=== PATIENT | male | born 1980 | race Hispanic/Latino ===

== ENCOUNTER 2023-10-05 01:22 | Emergency (ER) | payer SELFPAY ==
--- OUTSIDE RECORDS SUMMARY | 2023-10-05 01:30 | XMS REPORT | Continuity of Care Document ---
Author Name Unknown Address [address] [facility] [address] [place] [address] [facility] thconnect Address [address] [place] [address] Care Team Providers Care Dynamics Ax Solution Architect Name Role Phone Pcp, Patient Does Not Have A Primary Care Physic robert Janki Echols MD Attending Clinician [phone] JANKI ECHOLS Attending Clinician Unavailable Doctor Unassigned, Beltrami Attending Clinician U navailable Only, Adc Test Attending Clinician Unavailable Gramm BLUE LINE HANGER, Tova A Attending Clinician [phone] Janki Echols MD Admitting Clinician [phone] JANKI ECHOLS Admitting Clinician Unavailable Problems Condition Name Condition Details Condition Category Status Onset Date Resolution Date Last Treatment Date Treating Clinician Comments Source Hemorrhoid s, unspecifie d hemorrhoid type Hemorrhoid s, unspecifie d hemorrhoid type Disease Active 06-15 00:00: 00 Overview: Formattin g of this note might be different from the original. Added automatic ally from request for surgery [id number] [facility] Skin tag Skin tag Disease Active 06-15 00:00: 00 Overview: Formattin g of this note might be different from the original. Added automatic ally from request for surgery [id number] [facility] Allergies, Adverse Reactions, Alerts Allergy Name Allergy Type Status Severity Reaction(s) Onset Date Inactive Date Treating Clinician Comments Source NO KNOWN ALLERGIE S Drug Class Active [facility] Social History Social Habit Start Date Stop Date Quantity Comments Source Exposure to SARS-CoV-2 (event) 2022-07-08 00:00:00 2022-07-18 09:59:00 Not sure [facility] Alcohol intake 2022-07-18 00:00:00 2022-07-18 00:00:00 Ex-drinker (finding) [facility] Tobacco use and exposure 2021-06-10 00:00:00 2021-06-10 00:00:00 Smokeless tobacco non-user [facility] Sex Assigned At 1981 00:00:00 1981 00:00:00 [facility] Smoking Status Start Date Stop Date Source Never smoked tobacco [facility] Medications Ordered Medication Name Filled Medication Name Start Date Stop Date Current Medication? Ordering Clinician Indication Dosage Frequency Signature (SIG) Comments Components Source ascorbic acid, vitamin C, 500 mg tablet 07-01 14:10: 33 Yes 500mg Take 500 mg by mouth daily. [facility] ascorbic acid, vitamin C, 500 mg tablet 07-01 14:10: 33 Yes 500mg Take 500 mg by mouth daily. [facility] ascorbic acid, vitamin C, 500 mg tablet 07-01 14:10: 33 Yes 500mg Take 500 mg by mouth daily. [facility] docusate (COLACE) 100 mg capsule 07-01 00:00: 00 Yes [id number] 100mg Take 1 capsule by mouth 2 (two) times daily. [facility] docusate (COLACE) 100 mg capsule 07-01 00:00: 00 Yes [id number] 100mg Take 1 capsule by mouth 2 (two) times daily. [facility] docusate (COLACE) 100 mg capsule 07-01 00:00: 00 Yes [id number] 100mg Take 1 capsule by mouth 2 (two) times daily. [facility] psyllium husk 3.4 gram oral powder packet 07-01 00:00: 00 08-01 04:59 :00 No [id number] 1{packe t} Take 1 Packet by mouth daily for 30 days. [facility] psyllium husk 3.4 gram oral powder packet 07-01 00:00: 00 08-01 04:59 :00 No [id number] 1{packe t} Take 1 Packet by mouth daily for 30 days. [facility] psyllium husk 3.4 gram oral powder packet 07-01 00:00: 00 08-01 04:59 :00 No [id number] 1{packe t} Take 1 Packet by mouth daily for 30 days. [facility] Vital Signs Vital Name Observation Time Observation Value Comments [facility] [place] Systolic blood pressure 2022-07-18 15:43:00 95 mm[Hg] [facility] Diastolic blood pressure 2022-07-18 15:43:00 62 mm[Hg] [facility] Heart rate 2022-07-18 15:43:00 59 /min [facility] Body temperature 2022-07-18 15:43:00 36.44 Odalis [facility] Respiratory rate 2022-07-18 15:43:00 18 /min [facility] Body height 2022-07-18 15:43:00 167.6 cm [facility] Body weight 2022-07-18 15:43:00 71.124 kg [facility] BMI 2022-07-18 15:43:00 25.31 kg/m2 [facility] Oxygen saturation in Arterial blood by Pulse oximetry 2022-07-18 15:43:00 99 /min [facility] Encounters Start Date/Time End Date/Time Encounter Type Admission Type Attending Clinicians Care Facility Care Department Encounter ID Source 2022-07-18 10:00:00 2022-07-18 11:53:48 Office Visit [facility] 1.2.840.114 350.1.13.10 4.2.7.2.686 [id number] [facility] 2022-07-18 10:00:00 2022-07-18 11:53:48 Outpatient R JANKI ECHOLS [facility] [id number] [facility] 2022-07-18 10:00:00 2022-07-18 10:00:00 Outpatient R JANKI ECHOLS [facility] [id number] [facility] 2022-07-18 00:00:00 2022-07-18 00:00:00 Orders Only Doctor Unassigned, Beltrami [facility] 1.2.840.114 350.1.13.10 4.2.7.2.686 [id number] [facility] 2022-07-01 07:59:00 2022-07-01 13:50:00 [facility] 1.2.840.114 350.1.13.10 4.2.7.2.686 [id number] [facility] 2022-07-01 07:59:00 2022-07-01 13:50:00 Outpatient R JANKI ECHOLS [facility] [id number] [facility] 2022-07-01 10:00:00 2022-07-01 12:47:00 Surgery Janki Echols [facility] 1.2.840.114 350.1.13.10 4.2.7.2.686 [id number] [facility] 2022-06-28 15:30:00 2022-06-28 15:45:00 Laboratory Only Only, Adc Test Janki Echols [facility] 1.2.840.114 350.1.13.10 4.2.7.2.686 [id number] [facility] 2022-06-28 15:30:00 2022-06-28 15:30:00 Outpatient R JANKI ECHOLS [facility] [id number] [facility] 2022-06-28 00:00:00 2022-06-28 00:00:00 Orders Only Doctor Unassigned, Beltrami [facility] 1.2840.114 350.1.13.10 4.2.7.2.686 [id number] [facility] 2022-05-24 00:00:00 2022-05-24 00:00:00 Prep For Surgery Janki Echols [facility] 1.2840.114 350.1.13.10 4.2.7.2.686 [id number] [facility] 2022-05-23 00:00:00 2022-05-23 00:00:00 Telephone Janki Echols [facility] 1.2840.114 350.1.13.10 4.2.7.2.686 [id number] [facility] 2021-07-26 15:45:00 2021-07-26 15:45:00 Outpatient R JANKI ECHOLS [facility] [id number] [facility] 2021-07-26 00:00:00 2021-07-26 00:00:00 Orders Only Doctor Unassigned, Beltrami [facility] 1.2840.114 350.1.13.10 4.2.7.2.686 [id number] [facility] 2021-06-15 00:00:00 2021-06-15 00:00:00 Prep For Surgery Tova Senior [facility] 1.2.840.114 350.1.13.10 4.2.7.2.686 [id number] [facility] 2021-06-10 16:24:40 2021-06-10 16:54:40 Office Visit Janki Echols [facility] 1.2840.114 350.1.13.10 4.2.7.2.686 [id number] [facility] 2021-06-10 16:15:00 2021-06-10 16:15:00 Outpatient JANKI VALDES [facility] [id number] [facility] 2021-06-10 00:00:00 2021-06-10 00:00:00 Orders Only Doctor Unassigned, Beltrami [facility] 1.2.840.114 350.1.13.10 4.2.7.2.686 [id number] [facility]
[2023-10-05] MEDS ORDERED: DIPHENHYDRAMINE 25 MG TAB/CAP ONE (02:18)
[2023-10-05] MEDS ORDERED: ONDANSETRON 4 MG (ODT) TAB ONE (02:19)
[2023-10-05] MEDS ORDERED: IBUPROFEN 400 MG TAB ONE (02:19)
[2023-10-05] MEDS ORDERED: TETRACAINE HCL 0.5% 5 ML OPTH ONE (02:19)
[2023-10-05] MEDS ORDERED: FLUORESCEIN SODIUM 1 MG/WRAP ONE (02:19)
--- NOTE | 2023-10-05 02:20 | EDPHYS ---
Physician Documentation [facility] Name: Nate Love Age: 43 yrs Sex: Male : 1980 Arrival Date: 10/05/2023 Time: 01:22 Bed 13 Private MD: ED Physician Arnulfo Sher HPI: 10/05 01:32 This 43 yrs old Male presents to ER via Unassigned with complaints of Redness sp4 of Eye, Eye Pain, Eye Problem. 03:41 Reports his was cooking some peppers and the pepper fumes went into his eyes. sp4 Yesterday he developed redness irritation bilateral eyes which worsened this morning. Patient presents with bilateral eye redness irritation and tearing. . Historical: - Allergies: 01:40 No Known Allergies; kl - Home Meds: 01:40 vit c [Active]; x-ray po [Active]; kl - PMHx: 01:40 joint pain; kl - PSHx: 01:40 None; kl - Immunization history:: Adult Immunizations not up to date. - Social history:: Smoking status: Patient denies any tobacco usage or history of. - Family history:: not pertinent. ROS: 03:42 Constitutional: Negative for fever, chills, and weight loss, positive bilateral eye sp4 redness, bilateral eye pain, bilateral eye tearing 03:42 All other systems are negative, Exam: 03:42 Visual Acuity: Visual acuity is within normal limits. sp4 03:42 Constitutional: This is a well developed, well nourished patient who is awake, alert, and in no acute distress. Head/Face: Normocephalic, atraumatic. Eyes: Pupils equal round and reactive to light, extra-ocular motions intact. Lids and lashes normal. Conjunctiva -bilateral conjunctival erythema, bilateral eye irritation, bilateral eye tearing, no signs of corneal abrasions or ulcers. ENT: Nares patent. No nasal discharge, no septal abnormalities noted. Tympanic membranes are normal and external auditory canals are clear. Oropharynx with no redness, swelling, or masses, exudates, or evidence of obstruction, uvula midline. Mucous membranes moist. Neck: Trachea midline, no thyromegaly or masses palpated, and no cervical lymphadenopathy. Supple, full range of motion without nuchal rigidity, or vertebral point tenderness. Chest/axilla: Normal chest wall appearance and motion. Nontender with no deformity. No lesions are appreciated. Cardiovascular: Regular rate and rhythm with a normal S1 and S2. No gallops, murmurs, or rubs. Normal PMI, no JVD. No pulse deficits. Respiratory: Lungs have equal breath sounds bilaterally, clear to auscultation and percussion. No rales, rhonchi or wheezes noted. No increased work of breathing, no retractions or nasal flaring. Abdomen/GI: Soft, non-tender, with normal bowel sounds. No distension or tympany. No guarding or rebound. No evidence of tenderness throughout. Back: No spinal tenderness. No costovertebral tenderness. Skin: Warm, dry with normal turgor. Normal color with no rashes, no lesions, and no evidence of cellulitis. MS/ Extremity: Pulses equal, no cyanosis. Neurovascular intact. Full, normal range of motion. Neuro: Awake and alert, GCS 15, oriented to person, place, time, and situation. Cranial nerves II-XII grossly intact. Motor strength 5/5 in all extremities. Sensory grossly intact. Psych: Awake, alert, with orientation to person, place and time. Behavior, mood, and affect are within normal limits Vital Signs: 01:37 BP 121 / 85; Pulse 56; Resp 19; Temp 98.3(TE); Pulse Ox 100% ; Weight 72.57 kg; Height kl 5 ft. 5 in. ; Pain 9/10; 01:37 Body Mass Index 26.63 (72.57 kg, 165.1 cm) kl 01:37 Pain Scale: Adult kl MDM: 01:33 Patient medically screened. sp4 03:42 Differential diagnosis: Corneal abrasion of Corneal ulcer of Foreign body in Acute sp4 iritis of Acute glaucoma in Data reviewed: vital signs, nurses notes, old medical records. ED course: Eye pain has improved after tetracaine instillation. Patient stable for discharge home with p.o. as needed ibuprofen, as needed Benadryl, also tobramycin drops every 4 hours for the next 5 days to prevent bacterial conjunctivitis. . 10/05 01:53 Order name: Eye Tray; Complete Time: 02:10 sp4 10/05 01:53 Order name: Fluoresene Opth strip; Complete Time: 02:10 sp4 Administered Medications: 02:10 Drug: diphenhydrAMINE PO 50 mg PO once Route: PO; lg3 02:20 Follow up: Response: No adverse reaction lg3 02:11 Drug: Tetracaine Topical Solution (0.5 %) 5 ml Topical once Route: Topical; Site: lg3 affected area; 02:21 Follow up: Response: No adverse reaction lg3 02:11 Drug: Council PO 10 mg-325 mg 1 tabs PO once Route: PO; lg3 02:21 Follow up: Response: No adverse reaction lg3 02:11 Drug: Ibuprofen PO 800 mg PO once Route: PO; lg3 02:21 Follow up: Response: No adverse reaction lg3 02:11 Drug: Ondansetron PO 4 mg PO once Route: PO; lg3 02:20 Follow up: Response: No adverse reaction lg3 Disposition Summary: 10/05/23 02:19 Discharge Ordered Notes: Location: Home sp4 Problem: new sp4 Symptoms: have improved sp4 Condition: Stable sp4 Diagnosis - Unspecified acute conjunctivitis, bilateral sp4 - Bilateral chemical conjunctivitis sp4 Followup: sp4 - With: Vasquez Harvey MD - When: 7 - 10 days - Reason: Recheck today's complaints Discharge Instructions: - Discharge Summary Sheet sp4 - How to Use Eye Drops and Eye Ointments sp4 Forms: - Family Work Release lg3 - Patient Portal Instructions sp4 Prescriptions: - tobramycin 0.3 % Ophthalmic drops - instill 1 drop OPHTHALMIC route every 4 hours for 5 days 1 drop to both eyes sp4 every 4 hours for 5 days; 5 milliliter; Refills: 0, Product Selection Permitted - Benadryl 25 mg Oral capsule - take 1 capsule ORAL route every 8 hours As needed PRN redness; 30 tablet; sp4 Refills: 0, Product Selection Permitted - Ibuprofen 800 mg Oral Tablet - take 1 tablet ORAL route every 8 hours As needed take with food; 30 tablet; sp4 Refills: 0, Product Selection Permitted Signatures: Aicha Alfred RN RN kl Able, Lacie, RN RN lg3 Arnulfo Sher MD MD sp4
--- NOTE | 2023-10-05 02:20 | ER ---
Nurse's Notes [facility] Name: Nate Love Age: 43 yrs Sex: Male : 1980 Arrival Date: 10/05/2023 Time: 01:22 Bed 13 Private MD: Diagnosis: Unspecified acute conjunctivitis, bilateral;Bilateral chemical conjunctivitis Presentation: 10/05 01:37 Chief complaint: Patient states: bilateral eye pain and redness began at 10 pm kl gradually worsening reports no job duties that are hazardous to eyes redness and tearing noted. Coronavirus screen: Vaccine status: Patient reports receiving the 2nd dose of the covid vaccine. Ebola Screen: Patient negative for fever greater than or equal to 101.5 degrees Fahrenheit, and additional compatible Ebola Virus Disease symptoms. Mechanism of Injury: No Mechanism of Injury. Initial Sepsis Screen: Does the patient meet any 2 criteria? No. Patient's initial sepsis screen is negative. Does the patient have a suspected source of infection? No. Patient's initial sepsis screen is negative. Risk Assessment: Do you want to hurt yourself or someone else? Patient reports no desire to harm self or others. 01:37 Method Of Arrival: Wheelchair kl 01:37 Acuity: JAYLEN 4 kl 01:44 Note Citizen Of [place] speaking Senior Project Engineer [id number]. Triage Assessment: 01:42 General: Appears uncomfortable, Behavior is calm, cooperative. Pain: Complains of pain kl in bialteral yes. EENT: Eyes are tearing on inner aspect of conjuctiva of right eye and inner aspect of conjunctiva of left eye Sclera/Cornea are reddened in outer aspect of conjuctiva of right eye, inner aspect of conjuctiva of right eye, outer aspect of conjuctiva of left eye and inner aspect of conjunctiva of left eye. Historical: - Allergies: 01:40 No Known Allergies; kl - Home Meds: 01:40 vit c [Active]; x-ray po [Active]; kl - PMHx: 01:40 joint pain; kl - PSHx: 01:40 None; kl - Immunization history:: Adult Immunizations not up to date. - Social history:: Smoking status: Patient denies any tobacco usage or history of. - Family history:: not pertinent. Screenin:54 [facility] ED Fall Risk Assessment (Adult) History of falling in the last 3 months, lg3 including since admission No falls in past 3 months (0 pts). Abuse screen: Denies threats or abuse. Denies injuries from another. Nutritional screening: No deficits noted. Tuberculosis screening: No symptoms or risk factors identified. Assessment: 01:54 General: Appears in no apparent distress. uncomfortable, Behavior is calm, cooperative. lg3 Pain: Complains of pain in right eye and left eye Pain currently is 4 out of 10 on a pain scale. Neuro: No deficits noted. Zamudio Agitation-Sedation Scale (RASS): 0 - Alert and Calm Level of Consciousness is awake, alert, obeys commands, Oriented to person, place, time, situation. Cardiovascular: No deficits noted. Denies chest pain, shortness of breath, Capillary refill < 3 seconds Clubbing of nail beds is absent JVD is absent Patient's skin is warm and dry. Respiratory: No deficits noted. Airway is patent Respiratory effort is even, unlabored, Respiratory pattern is regular, symmetrical. GI: No deficits noted. No signs and/or symptoms were reported involving the gastrointestinal system. : No deficits noted. No signs and/or symptoms were reported regarding the genitourinary system. EENT: Eyes are tearing on right eye and left eye Sclera/Cornea are reddened in right eye and left eye. Derm: No deficits noted. No signs and/or symptoms reported regarding the dermatologic system. Skin is intact, is healthy with good turgor, Skin is dry, Skin is normal, Skin temperature is warm. Musculoskeletal: No deficits noted. No signs and/or symptoms reported regarding the musculoskeletal system. Circulation, motion, and sensation intact. Range of motion: intact in all extremities. Vital Signs: 01:37 BP 121 / 85; Pulse 56; Resp 19; Temp 98.3(TE); Pulse Ox 100% ; Weight 72.57 kg; Height kl 5 ft. 5 in. ; Pain 9/10; 01:37 Body Mass Index 26.63 (72.57 kg, 165.1 cm) kl 01:37 Pain Scale: Adult ED Course: 01:30 Patient arrived in ED. jj6 01:32 Arnulfo Sher MD is Attending Physician. sp4 01:40 Triage completed. kl 01:53 Able, Regina, RN is Primary Nurse. lg3 01:54 Patient has correct armband on for positive identification. lg3 01:54 Arm band placed on right wrist. lg3 01:54 Patient maintains SpO2 saturation greater than 95% on room air. lg3 02:18 Vasquez Harvey MD is Referral Physician. sp4 02:32 Assist provider with eye exam of both eyes. using fluorescein stain, Performed by lg3 Arnulfo Sher MD Patient tolerated well. Patient did not have IV access during this emergency room visit. Administered Medications: 02:10 Drug: diphenhydrAMINE PO 50 mg PO once Route: PO; lg3 02:20 Follow up: Response: No adverse reaction lg3 02:11 Drug: Tetracaine Topical Solution (0.5 %) 5 ml Topical once Route: Topical; Site: lg3 affected area; 02:21 Follow up: Response: No adverse reaction lg3 02:11 Drug: [place] PO 10 mg-325 mg 1 tabs PO once Route: PO; lg3 02:21 Follow up: Response: No adverse reaction lg3 02:11 Drug: Ibuprofen PO 800 mg PO once Route: PO; lg3 02:21 Follow up: Response: No adverse reaction lg3 02:11 Drug: Ondansetron PO 4 mg PO once Route: PO; lg3 02:20 Follow up: Response: No adverse reaction lg3 Medication: 02:33 VIS not applicable for this client. lg3 Outcome: 02:19 Discharge ordered by . sp4 02:32 Discharged to home ambulatory, with family, lg3 02:32 Condition: stable 02:32 Discharge instructions given to patient, Instructed on discharge instructions, follow up and referral plans. medication usage, Demonstrated understanding of instructions, follow-up care, medications, Prescriptions given X 3, 02:33 Patient left the ED. lg3 Signatures: Aicha Alfred RN RN kl Able, Lacie, RN RN lg3 Gerri Leiva6 Arnulfo Sher MD MD sp4
[2023-10-05] MEDS ORDERED: HYDROCODONE/APAP 5/325 MG TAB ONE (02:21)
[2023-10-05 02:54] VITALS: BP 121/85; TEMP 98.3; O2SAT 100
== END 2023-10-05 02:33 | disposition home or self-care (01) ==
LOC: ER 01:22
DX: H10.213 Acute toxic conjunctivitis, bilateral (principal)
CPT/HCPCS: 99284; Q0162

== ENCOUNTER 2024-09-07 23:49 | Emergency (ER) | payer SELFPAY ==
[2024-09-08 01:22] LABS: SARS-CoV-2 Antigen CONTROL BLUE LINE VIS/BG OK; SARS-CoV-2 Antigen Rapid Res Negative (Negative)
[2024-09-08] MEDS ORDERED: dexAMETHasone 10 MG/ML VIAL ONE (02:03)
[2024-09-08] MEDS ORDERED: ACETAMINOPHEN 500 MG TAB ONE (02:03)
[2024-09-08] MEDS ORDERED: IBUPROFEN 400 MG TAB ONE (02:04)
[2024-09-08] MEDS ORDERED: LIDOCAINE VISCOUS 2% 10ML ORAL SOLN ONE (02:04)
--- NOTE | 2024-09-08 02:25 | ER ---
Nurse's Notes [facility] Name: Nate Love Age: 44 yrs Sex: Male : 1980 Arrival Date: 09/07/2024 Time: 23:49 Bed 19 Private MD: Diagnosis: Acute pharyngitis, unspecified Presentation: 09/08 00:50 Chief complaint:. Coronavirus screen: Client denies travel out of the [place] in the last kj2 14 days. Ebola Screen: No symptoms or risks identified at this time. Initial Sepsis Screen: Does the patient meet any 2 criteria? No. Patient's initial sepsis screen is negative. Does the patient have a suspected source of infection? No. Patient's initial sepsis screen is negative. Risk Assessment: Do you want to hurt yourself or someone else? Patient reports no desire to harm self or others. Onset of symptoms was September 04, 2024. 00:50 Method Of Arrival: Ambulatory kj2 00:50 Acuity: JAYLEN 3 kj2 Triage Assessment: 00:50 General: Appears in no apparent distress. Behavior is calm, cooperative. Pain: kj2 Complains of pain in sore throat. Pain: Pain currently is 8 out of 10 on a pain scale. EENT: Reports pain in throat. Neuro: Level of Consciousness is awake, alert, Oriented to person, place, time, situation. Cardiovascular: Patient's skin is warm and dry. Respiratory: Airway is patent Respiratory effort is unlabored. GI: No signs and/or symptoms were reported involving the gastrointestinal system. : No signs and/or symptoms were reported regarding the genitourinary system. Historical: - Allergies: :54 No Known Allergies; kj2 - Home Meds: 01:54 vit c [Active]; kj2 - PMHx: 01:54 joint pain; kj2 - Immunization history:: Adult Immunizations unknown. - Infectious Disease History:: Denies. - Social history:: Smoking status: unknown. Screenin:00 [facility] ED Fall Risk Assessment (Adult) History of falling in the last 3 months, kj2 including since admission No falls in past 3 months (0 pts) Confusion or Disorientation No (0 pts) Intoxicated or Sedated No (0 pts) Impaired Gait No (0 pts) Mobility Assist Device Used No (0 pt) Altered Elimination No (0 pt) Score/Fall Risk Level 0 - 2 = Low Risk Maintained a safe environment, Hourly rounding (assess needs \T\ fall precautionary measures) done. Abuse screen: Denies threats or abuse. Denies injuries from another. Nutritional screening: No deficits noted. Tuberculosis screening: No symptoms or risk factors identified. Assessment: 00:55 General: see triage assessment. kj2 00:55 EENT: Throat is reddened. kj2 00:55 Respiratory: Airway is patent Breath sounds are clear. kj2 01:55 Reassessment: Patient appears in no apparent distress at this time. Patient and/or kj2 family updated on plan of care and expected duration. Pain level reassessed. Patient is alert, oriented x 3, equal unlabored respirations, skin warm/dry/pink. Vital Signs: 00:50 Weight 54.43 kg; Height 5 ft. 10 in. ; Pain 8/10; kj2 00:55 BP 124 / 84; Pulse 82; Resp 18; Temp 98.2; kj2 00:55 Temp 98.2; Pulse Ox 100% ; kj2 01:50 BP 128 / 82; Pulse 78; Resp 20; Temp 98.2; Pulse Ox 98% on R/A; kj2 02:41 BP 125 / 81; Pulse 74; Resp 18; Temp 98.2; Pulse Ox 97% on R/A; kj2 00:50 Body Mass Index 17.22 (54.43 kg, 177.8 cm) kj2 00:50 Pain Scale: Adult kj2 ED Course: 09/07 23:54 Patient arrived in ED. ra3 09/08 00:02 Trae Barber MD is Attending Physician. ec2 01:00 Patient has correct armband on for positive identification. Provided Education on: call kj2 light. 01:01 Strep Sent. ty 01:01 SARS RAPID Sent. ty 01:01 Influenza Screen (a \T\ B) Sent. ty 01:10 Arm band placed on Patient placed in an exam room, on a stretcher. kj2 01:39 Geraldine Schwartz, TRACY is Primary Nurse. kj2 01:53 Triage completed. kj2 01:55 No provider procedures requiring assistance completed. kj2 02:46 Patient did not have IV access during this emergency room visit. kj2 Administered Medications: 02:20 Drug: Viscous Lidocaine Mucous Membrane Liquid (4 %) 10 ml Mucous Membrane once Route: kj2 Mucous Membrane; 02:21 Drug: Dexamethasone IM 10 mg IM once Route: IM; Site: left deltoid; kj2 03:00 Follow up: Response: No adverse reaction kj2 02:21 Drug: Acetaminophen PO 1000 mg PO once Route: PO; kj2 03:00 Follow up: Response: No adverse reaction kj2 02:21 Drug: Ibuprofen PO 800 mg PO once Route: PO; kj2 02:50 Follow up: Response: No adverse reaction kj2 Medication: 02:28 VIS not applicable for this client. kj2 Outcome: 02:24 Discharge ordered by . ec2 02:45 Discharged to home ambulatory, kj2 02:45 Condition: stable 02:45 Discharge instructions given to patient, Instructed on discharge instructions, follow up and referral plans. Demonstrated understanding of instructions, follow-up care, 02:47 Patient left the ED. kj2 Signatures: Trae Barber MD MD ec2 Bettina Oakley ra3 Siva García Krystal, RN RN kj2
--- NOTE | 2024-09-08 02:25 | EDPHYS ---
Physician Documentation [facility] Name: Nate Love Age: 44 yrs Sex: Male : 1980 Arrival Date: 09/07/2024 Time: 23:49 Bed 19 Private MD: ED Physician Trae Barber HPI: 09/08 01:07 This 44 yrs old Male presents to ER via Unassigned with complaints of Sore ec2 Throat. 01:08 Patient arrives today for evaluation of a sore throat. Complaining of sore throat has ec2 been ongoing for several days. States that he was seen in urgent care prescribed amoxicillin and ibuprofen yesterday. No fevers or nausea or vomiting. Unclear if he was tested for strep, has been on amoxicillin for 1 day.. Historical: - Allergies: 01:54 No Known Allergies; kj2 - Home Meds: 01:54 vit c [Active]; kj2 - PMHx: 01:54 joint pain; kj2 - Immunization history:: Adult Immunizations unknown. - Infectious Disease History:: Denies. - Social history:: Smoking status: unknown. ROS: 01:08 Constitutional: as per hpi ec2 Exam: 01:08 Constitutional: GEN: NAD Head: atraumatic Eyes: EOMI Ears: External ears are normal. ec2 Mouth: Posterior pharyngeal erythema, no exudates appreciated. No trismus. No abscess appreciated. CV: regular rate LUNGS: no respiratory distress ABD: non-distended SKIN: no evidence of rashes MSK: no evidence of trauma Vital Signs: 00:50 Weight 54.43 kg; Height 5 ft. 10 in. ; Pain 8/10; kj2 00:55 BP 124 / 84; Pulse 82; Resp 18; Temp 98.2; kj2 00:55 Temp 98.2; Pulse Ox 100% ; kj2 01:50 BP 128 / 82; Pulse 78; Resp 20; Temp 98.2; Pulse Ox 98% on R/A; kj2 02:41 BP 125 / 81; Pulse 74; Resp 18; Temp 98.2; Pulse Ox 97% on R/A; kj2 00:50 Body Mass Index 17.22 (54.43 kg, 177.8 cm) kj2 00:50 Pain Scale: Adult kj2 MDM: 00:02 Medical Screening Exam initiated ec2 01:08 Data reviewed: vital signs. ED course: Patient arrives today for sore throat. ec2 Examination remarkable for HEENT findings as above. Will obtain viral swabs as well as strep swab and treat the patient's pain. Suspect pharyngitis.. 09/08 00:08 Order name: Influenza Screen (a \T\ B); Complete Time: 02:24 ec2 09/08 00:08 Order name: SARS RAPID; Complete Time: :57 ec2 09/08 00:08 Order name: Strep; Complete Time: :57 ec2 09/08 01:25 Order name: Throat Culture EDMS Administered Medications: 02:20 Drug: Viscous Lidocaine Mucous Membrane Liquid (4 %) 10 ml Mucous Membrane once Route: kj2 Mucous Membrane; 02:21 Drug: Dexamethasone IM 10 mg IM once Route: IM; Site: left deltoid; kj2 03:00 Follow up: Response: No adverse reaction kj2 02:21 Drug: Acetaminophen PO 1000 mg PO once Route: PO; kj2 03:00 Follow up: Response: No adverse reaction kj2 02:21 Drug: Ibuprofen PO 800 mg PO once Route: PO; kj2 02:50 Follow up: Response: No adverse reaction kj2 Disposition Summary: 09/08/24 02:24 Discharge Ordered Notes: Location: Home ec2 Condition: Stable ec2 Diagnosis - Acute pharyngitis, unspecified ec2 Followup: ec2 - With: Private Physician - When: - Reason: Recheck today's complaints, Re-evaluation by your physician Discharge Instructions: - Discharge Summary Sheet ec2 - Pharyngitis, [id number] ec2 Forms: - Medication Reconciliation Form ec2 - Antibiotic Education ec2 - Prescription Opioid Use ec2 - Patient Portal Instructions ec2 - Leadership Thank You Letter ec2 Prescriptions: - Prednisone 20 mg Oral Tablet - take 1 tablet ORAL route once daily for 5 days; 5 tablet; Refills: 0, Product ec2 Selection Permitted Signatures: Dispatcher [employer] EDTrae Joe MD MD ec2 Geraldine Schwartz RN RN kj2 Corrections: (The following items were deleted from the chart) 00:08 00:08 Influenza Screen (A \T\ B)+BA.LAB.BRZ ordered. EDCO EDMS 00:08 00:08 SARS-COV-2 Antigen Rapid+I.LAB.BRZ ordered. EDMS EDMS 00:08 00:08 Group A Streptococcus Rapid Sc+BA.LAB.BRZ ordered. EDMS EDMS
[2024-09-08 03:12] VITALS: TEMP 98.2
[2024-09-08 03:15] VITALS: BP 125/81; O2SAT 97
== END 2024-09-08 02:47 | disposition home or self-care (01) ==
LOC: ER 23:49
DX: J02.9 Acute pharyngitis, unspecified (principal); Z11.52 Encounter for screening for COVID-19
CPT/HCPCS: 36415; 87070; 87081; 87804; 87811; 96372; 99284; J1100